=== PATIENT | female | born 1965 | race Caucasian/White ===

== ENCOUNTER 2018-02-16 00:26 | Emergency (ER) | payer MEDICAID ==
[~2018-02-16] VITALS: Ht 170.2 cm; Wt 65.8 kg
--- NOTE | 2018-02-16 00:33 | Emergency Room Report ---
History of Present Illness General Chief Complaint: Nausea Source: Patient Present Illness [facility] This patient c/o weakness after taking Tramadol. No trauma, no fever, no shortness of breath, no travel history, no leg swelling, no chest pain, no diaphoresis, no exertional complaints, no nausea, no vomiting, no diarrhea, no abdominal pain. Tolerating po fine, normal urinary output, normal bm. No syncope , LOC, dizziness, lightheadedness, headache. No recent surgery. Allergies: Coded Allergies: No Known Allergies (Unverified , 02/16/18) Nursing Documentation-[facility] Past Medical History: No Stated History Review of Systems Constitutional: Reports: no symptoms Eye: Reports: no symptoms ENT: Reports: no symptoms Respiratory: Reports: no symptoms Cardiovascular: Reports: no symptoms Gastrointestinal: Reports: no symptoms Genitourinary: Reports: no symptoms Musculoskeletal: Reports: no symptoms Skin: Reports: no symptoms Psychiatric: Reports: no symptoms Neurological: Reports: no symptoms Endocrine: Reports: no symptoms Hematologic/Lymphatic: Reports: no symptoms Allergic: Reports: no symptoms All Other Systems: negative except mentioned in HPI Physical Exam Vital Signs Date Time Temp Pulse Resp B/P (MAP) Pulse Ox O2 Delivery O2 Flow Rate FiO2 02/16/18 00:04 98.4 60 14 141/92 98 Room Air 98.4 Sp02 EP Interpretation: reviewed, normal General Appearance: normal inspection, well appearing, no apparent distress, alert, GCS 15, non-toxic Head: normocephalic, atraumatic Eyes: bilateral eye normal inspection, bilateral eye PERRL, bilateral eye EOMI ENT: normal ENT inspection, hearing grossly normal, normal pharynx, no angioedema, normal voice, moist mucus membranes Neck: normal inspection, full range of motion, supple, no meningismus, no bony tend Respiratory: normal inspection, lungs clear, normal breath sounds, no rhonchi, no respiratory distress, no retraction, no accessory muscle use, no wheezing Cardiovascular #1: normal inspection, regular rate, rhythm, no edema Gastrointestinal: normal inspection, normal bowel sounds, non tender, soft, no mass, non-distended Musculoskeletal: gait/station normal, normal range of motion Neurologic: normal inspection, alert, oriented x3, responsive, motor strength/ tone normal Psychiatric: normal inspection, judgement/insight normal, memory normal, other - sad Suicide Risk Assessment: Suicidal Ideation: No Had intent to initiate attempt: No Pt's plan for suicide attempt: No Has means to complete attempt: No Skin: normal inspection, normal color, no rash, warm/dry Medical Decision Making Diagnostic Impression: Primary Impression: Nausea alone Last Vital Signs Date Time Temp Pulse Resp B/P (MAP) Pulse Ox O2 Delivery O2 Flow Rate FiO2 02/16/18 00:04 98.4 60 14 141/92 98 Room Air 98.4 Disposition: HOME, SELF-CARE Condition: Stable Patient Instructions: Nausea, Adult Marlon Raygoza M.D. Feb 16, 2018 00:33
[2018-02-16 00:40] VITALS: BP 141/92
[2018-02-16 01:00] VITALS: BP 141/92
== END 2018-02-16 02:15 | disposition home or self-care (01) ==
LOC: EDBD 00:26 → EMR 02:12
DX: R11.0 Nausea (principal)
CPT/HCPCS: 99282